=== PATIENT | male | born 1970 | race Caucasian/White ===

== ENCOUNTER 2018-10-22 16:24 | Emergency (ER) | payer BC ==
[2018-10-22] MEDS ORDERED: DILTIAZEM 25MG/5ML VIAL IV ONE (16:42)
--- NOTE | 2018-10-22 16:44 | Emergency Department Record ---
History of Present Illness - General Chief Complaint: Arrythmia/Palpitations Stated Complaint: FAST HEART RATE Time Seen by Provider: 10/22/18 16:36 Source: Patient Mode of Arrival: Ambulatory Limitations: No limitations - History of Present Illness Initial Comments: The patient is here due to feeling like he went into Afib about 45 minutes ago. He denies any CP, SOB, or MARY but he does have the hx of Afib and has been going in and out of it for months. The patient normally takes Sotolol but missed a dose this AM. He does see Dr. Rabago at [facility]. Complaint: Atrial fibrillation, "Heart racing" Onset/Timin -: Minutes(s) - Related Data Home Medications Medication Instructions Recorded Confirmed Last Taken Sotalol HCl [Sotalol] 80 mg PO BID 10/22/18 10/22/18 1 Day Ago ~10/21/18 Allergies Allergy/AdvReac Type Severity Reaction Status Date / Time No Known Drug Allergies Allergy Verified 10/22/18 16:27 Travel Screening - Travel/Exposure Within Last 30 Days Have you traveled within the last 30 days?: No - Travel/Exposure Within Last Year Have you traveled outside the [place] in the last year?: No - Additonal Travel Details Have you been exposed to anyone with a communicable illness?: No - Travel Symptoms Symptom Screening: None Review of Systems Constitutional: Denies: Chills, Fever Eyes: Denies: Eye discharge ENT: Denies: Congestion Respiratory: Denies: Cough, Dyspnea Cardiovascular: Reports: Arrhythmia. Denies: Chest pain Endocrine: Denies: Fatigue Gastrointestinal: Denies: Nausea Genitourinary: Denies: Dysuria Musculoskeletal: Denies: Arthralgia Skin: Denies: Bruising Past Medical History - SOCIAL HISTORY Smoking Status: Former smoker Alcohol Use: Occasional Drug Use: None - RESPIRATORY Hx Respiratory Disorders: No - CARDIOVASCULAR Hx Cardio Disorders: Yes Hx Irregular Heartbeat: Yes - NEURO Hx Neuro Disorders: No - GI Hx GI Disorders: Yes Hx Reflux: Yes - Hx Genitourinary Disorders: Yes Hx Prostate Problems: Yes (enlarged) - ENDOCRINE Hx Endocrine Disorders: No Hx Diabetes: No Hx Thyroid Disease: No - PSYCH Hx Psych Problems: No - HEMATOLOGY/ONCOLOGY Hx Hematology/Oncology Disorders: No Family Medical History Any Significant Family History?: Yes Hx Cancer: Father Hx Heart Disease: Mother, Brother/Sister Physical Exam - General General Appearance: Alert, Oriented x3, Cooperative, No acute distress - Head Head exam: Atraumatic, Normocephalic, Normal inspection - Eye Eye exam: Normal appearance, PERRL, EOMI - ENT Throat exam: Normal inspection. negative: Tonsillar erythema, Tonsillar exudate - Neck Neck exam: Normal inspection, Full ROM. negative: Tenderness - Respiratory Respiratory exam: Normal lung sounds bilaterally. negative: Respiratory distress - Cardiovascular Cardiovascular Exam: Irregular rhythm. negative: Regular rate, Normal rhythm, Normal heart sounds - GI/Abdominal GI/Abdominal exam: Soft, Normal bowel sounds. negative: Tenderness - Extremities Extremities exam: Normal inspection, Full ROM, Normal capillary refill. negative: Tenderness - Neurological Neurological exam: Alert. negative: Motor sensory deficit Course Vital Signs 10/22/18 16:26 Temperature 98.0 F Pulse Rate 151 H Respiratory 20 Rate Blood Pressure 106/98 Pulse Ox 98 - Reevaluation(s) Reevaluation #1: The patient is doing well and denies any pain or discomfort. He is still in Afib with a more controlled heart rate. 10/22/18 17:34 Reevaluation #2: The patient is doing a lot better at this time. He is resting comfortably with a HR of 100-120. Due to still being in Afib I did discuss the case with DR. Dunne who did accept the patient for transfer to [facility]. 10/22/18 17:51 Medical Decision Making - Data Complexity MDM Data: Labs Ordered and/or Reviewed, EKG Ordered and/or Reviewed - Lab Data Result diagrams: 10/22/18 16:35 10/22/18 16:35 - EKG Data -: EKG Interpreted by Me EKG: Abnormal EKG (Afib at the 150's. Neg for ischemic changes.) Disposition Disposition: Transfer Clinical Impression: Rapid atrial fibrillation Disposition: Acute Care Hospital Transfer Transfer To: [facility] Reason For Transfer: Cardiology Accepting Physician: Vibha Time Discussed w/Accepting Physician: 17:53 Condition: (2) Stable Forms: Patient Portal Access Time of Disposition: 17:53 Quality - Quality Measures Quality Measures: N/A - Blood Pressure Screening View Details: Yes Does Patient Have Any of the Following: No Blood Pressure Classification: Hypertensive Reading Systolic Measurement: 106 Diastolic Measurement: 98 Screening for High Blood Pressure: < First Hypertensive BP, F/U Documented > [[id number]] First Hypertensive Follow-up Interventions: Referral to alternative/primary care provider.
[2018-10-22] MEDS ORDERED: 0.9 % SODIUM CHLORIDE 1,000 ML BAG IV ONE (16:45)
[2018-10-22] MEDS ORDERED: DILTIAZEM HCL 125 MG in 0.9 % SODIUM CHLORIDE 100ML 100 ML IV SCH (16:45)
[2018-10-22 16:48] LABS: ABSOLUTE NEUTROPHIL COUNT 4.94; BASO % 0.2 % (0-6); EOS % 1.1 % (0-6); GRAN % 55.5 % (47-80); HEMATOCRIT 48.1 % (42.0-52.0); HEMOGLOBIN 15.7 gm/dl (14.0-18.0); LYMPH % 33.8 % (16-45); MEAN CELL VOLUME 87.6 fl (81-97); MEAN CORPUSCULAR HEMOGLOBIN 28.6 pg (27-33); MEAN CORPUSCULAR HGB CONC 32.6 g/dl (32-36); MEAN PLATELET VOLUME 10.3 fl (7.4-10.4); MONO % 9.4 % (0-9); PLATELET COUNT 213 K/uL (130-400); RED BLOOD COUNT 5.49 M/uL (4.40-5.70); RED CELL DISTRIBUTION WIDTH 13.7 % (11.5-14.5); WHITE BLOOD COUNT W/O DIFF 8.9 K/uL (4.2-12.2)
[2018-10-22 17:04] LABS: PARTIAL THROMBOPLASTIN TIME 25.4 SECONDS (24.5-39.1); PROTHROMBIN TIME (PATIENT) 10.3 SECONDS (9.5-12.1)
[2018-10-22 17:06] LABS: BLOOD UREA NITROGEN 20 mg/dL (6-20); CREATININE 1.1 mg/dL (0.7-1.2); EST GLOMERULAR FILTRATION RATE > 60 mL/min
[2018-10-22 17:09] LABS: GLUCOSE,RANDOM 90 mg/dL (74-109)
[2018-10-22 17:11] LABS: ALB/GLOB RATIO 1.8 (1.1-1.8); ALBUMIN 4.5 g/dL (4.0-5.0); ALKALINE PHOSPHATASE 59 U/L (40-129); ALT/SGPT 26 U/L (<41); AST/SGOT 24 U/L (10.0-50.0); CREATINE PHOSPHOKINASE 198 U/L (39-308)
[2018-10-22 17:15] LABS: CKMB 3.9 ng/mL (<6.73)
[2018-10-22 17:25] LABS: THYROID STIMULATING HORMONE 1.31 uIU/mL (0.270-4.20)
== END 2018-10-22 21:21 | disposition short-term general hospital (02) ==
LOC: ER 16:24
DX: I48.91 Unspecified atrial fibrillation (principal); R42 Dizziness and giddiness; Z87.891 Personal history of nicotine dependence
CPT/HCPCS: 80053; 82550; 82553; 84443; 84484; 85025; 85610; 85730; 93005; 93010; 96365; 96366; 99285; J7030